=== PATIENT | male | born 1965 | race Caucasian/White ===

== ENCOUNTER 2024-09-07 13:54 | Inpatient (IN) | payer MEDICAID ==
[~2024-09-07] VITALS: Ht 172.7 cm; Wt 90.5 kg
[2024-09-07] VITALS (10 sets, daily range): BP systolic 80–141; BP diastolic 45–99; PULSE 60–89; RESP 18–19; TEMP 98–98.4; O2SAT 97–100
[2024-09-07 14:49] LABS: BASOPHILS % (AUTO) 0.7 % (0.0-2.0); EOSINOPHILS % (AUTO) 1.4 % (1.0-6.0); HEMATOCRIT 40.9 % (41-53); HEMOGLOBIN 13.3 g/dL (13.5-17.5); LYMPHOCYTES # (AUTO) 1.4 K/uL (1.0-4.8); LYMPHOCYTES % (AUTO) 14.3 % (22.0-44.0); MEAN CORPUSCULAR HGB CONC 32.5 G/dL (31.0-37.0); MEAN CORPUSCULAR VOLUME 92 fL (80-100); MONOCYTES # (AUTO) 1.4 K/uL (0.1-1.0); MONOCYTES % (AUTO) 14.3 % (2.0-9.0); NEUTROPHILS # (AUTO) 6.6 K/uL (1.8-7.7); NEUTROPHILS % (AUTO) 69.3 % (40.0-70.0); PLATELET COUNT (AUTO) 604 K/uL (150-450); RED BLOOD CELL COUNT(AUTO) 4.43 MIL/uL (4.50-5.90); RED CELL DISTRIBUTION WIDTH 14.5 % (11.5-14.5); WHITE BLOOD COUNT (AUTO) 9.6 K/uL (4.5-11.0)
[2024-09-07 14:57] LABS: ANION GAP 11 mmol/L (8-16); CARBON DIOXIDE 27 mmol/L (22-29); CHLORIDE 104 mmol/L (98-107); CREATININE 0.89 mg/dL (0.60-1.30); GLOMERULAR FILTR. RATE CALC > 60 mL/min (>60); GLUCOSE,RANDOM 119 mg/dL (70-110); POTASSIUM 3.8 mmol/L (3.5-5.1); SODIUM SERUM 142 mmol/L (136-145); UREA NITROGEN, BLOOD 10 mg/dL (7-18)
[2024-09-07] MEDS: SODIUM CHLORIDE 0.9% 1,000 ML IV ONE ×2 (15:05→18:54)
[2024-09-07 15:07] LABS: CREATINE KINASE, TOTAL ONLY 387 U/L (39-308); TROPONIN I-HIGH SENSITIVITY 5 ng/L (<76)
[2024-09-07 15:12] LABS: ALBUMIN 3.4 g/dL (3.4-5.0); BILIRUBIN,DIRECT 0.1 mg/dL (0.00-0.20); BILIRUBIN,TOTAL 0.3 mg/dL (0.1-1.0); TOTAL PROTEIN, SERUM 7.9 g/dL (6.4-8.2)
[2024-09-07] MEDS ORDERED: ZOLPIDEM TARTRATE 5 MG TABLET PO PRN (15:15)
[2024-09-07] MEDS ORDERED: MAGNESIUM HYDROXIDE SUSPENSION 30 ML UDCUP PO PRN (15:15)
[2024-09-07] MEDS: PIPERACILLIN/TAZO 3.375 GM/D5W 50 ML IV ONE (15:27)
[2024-09-07] MEDS: SODIUM CHLORIDE 0.9% 1,750 ML IV ONE (15:28)
[2024-09-07] MEDS: ACETAMINOPHEN 325 MG TABLET PO PRN (16:38)
[2024-09-07] MEDS: LORazepam 2 MG/ML VIAL IVP PRN (17:33)
[2024-09-07 17:51] LABS: GLUCOMETER DEV NAME(LOC) 6N.2B; GLUCOSE,POINT OF CARE 129 MG/DL (70-110)
[2024-09-07] MEDS ORDERED: SODIUM CHLORIDE 0.9% 500 ML IV ONE ×2 (18:11→19:42)
[2024-09-07] MEDS ORDERED: LORazepam 2 MG/ML VIAL IVP PRN (18:15)
[2024-09-07] MEDS: LevETIRAcetam 1,000 MG in DEXTROSE 5%-WATER 100 ML IV STA (18:54)
[2024-09-07] MEDS: PROPRANOLOL HCL 10 MG TABLET PO SCH (21:00)
[2024-09-08 00:58] VITALS: BP 107/59; PULSE 60; RESP 18; TEMP 98.1; O2SAT 99
[2024-09-08 03:29] LABS: APPEARANCE,URINE CLEAR (CLEAR); BILIRUBIN,URINE NEGATIVE (NEGATIVE); COLOR,URINE YELLOW (YELLOW); GLUCOSE, URINE (UA) NEGATIVE (NEGATIVE); KETONES,URINE NEGATIVE (NEGATIVE); LEUKOCYTE ESTERASE ,URINE NEGATIVE (NEGATIVE); NITRATE,URINE NEGATIVE (NEGATIVE); OCCULT BLOOD,URINE NEGATIVE (NEGATIVE); PH,URINE 6.5 (5.0-8.0); PH,URINE DRUG SCREEN 6.5 (5.0-8.0); PROTEIN,URINE 30-70 mg/dL (NEGATIVE); SPECIFIC GRAVITIY, URINE 1.025 (1.003-1.030); UROBILINOGEN,URINE <=1.0 mg/dL (<=1.0)
[2024-09-08 03:36] LABS: ALCOHOL, URINE DRUG SCREEN NEGATIVE (NEGATIVE); AMPHET/METH SCREEN,URINE NEGATIVE (NEGATIVE); BARBITURATE SCREEN, URINE NEGATIVE (NEGATIVE); BENZODIAZEPINES SCREEN,URINE NEGATIVE (NEGATIVE); CANNABINOID SCREEN,URINE POSITIVE (NEGATIVE); COCAINE SCREEN,URINE NEGATIVE (NEGATIVE); METHADONE SCREEN, URINE NEGATIVE (NEGATIVE); OPIATE SCREEN,URINE NEGATIVE (NEGATIVE); PHENCYCLIDINE SCREEN,URINE NEGATIVE (NEGATIVE)
[2024-09-08 04:30] VITALS: BP 113/68; PULSE 66; RESP 18; TEMP 98.3; O2SAT 98
[2024-09-08] MEDS: LevETIRAcetam 1,000 MG in DEXTROSE 5%-WATER 100 ML IV SCH (06:39)
[2024-09-08 09:05] VITALS: BP 98/54; PULSE 69; RESP 19; TEMP 98.1; O2SAT 99
[2024-09-08] MEDS: FAMOTIDINE 20 MG TABLET PO SCH (09:15)
[2024-09-08] MEDS: SODIUM CHLORIDE 0.9% 1,000 ML IV ONE (11:18)
[2024-09-08 12:45] VITALS: BP 104/58; PULSE 70; RESP 18; TEMP 98.2; O2SAT 99
[2024-09-08 16:17] VITALS: BP 112/53; PULSE 76; RESP 19; TEMP 98; O2SAT 98
[2024-09-08 20:16] VITALS: BP 113/68; PULSE 78; RESP 19; TEMP 98.8; O2SAT 94
[2024-09-09 00:37] VITALS: BP 124/69; PULSE 75; RESP 18; TEMP 98.4; O2SAT 96
[2024-09-09 04:29] VITALS: BP 120/73; PULSE 64; RESP 18; TEMP 98.3; O2SAT 95
[2024-09-09 07:39] VITALS: BP 115/74; PULSE 55; RESP 18; TEMP 98; O2SAT 97
[2024-09-09 11:27] VITALS: BP 105/71; PULSE 82; RESP 18; TEMP 97.6; O2SAT 98
[2024-09-09 15:13] VITALS: BP 115/66; PULSE 74; RESP 18; TEMP 97.9; O2SAT 96
[2024-09-09 19:39] VITALS: BP 125/77; PULSE 74; RESP 18; TEMP 98.2; O2SAT 98
[2024-09-09] MEDS ORDERED: SODIUM CHLORIDE 0.9% 1,000 ML ONE (20:32)
[2024-09-10 04:46] VITALS: BP 129/60; PULSE 67; RESP 18; TEMP 97.8; O2SAT 98
[2024-09-10 08:08] VITALS: BP 122/80; PULSE 70; RESP 18; TEMP 98.5; O2SAT 95
[2024-09-10 11:08] VITALS: BP 127/74; PULSE 59; RESP 18; TEMP 97.6; O2SAT 99
[2024-09-10 15:08] VITALS: BP 120/76; PULSE 97; RESP 17; TEMP 97.7; O2SAT 97
[2024-09-10] MEDS: HEPARIN SODIUM,PORCINE 5,000 UNITS/ML VIAL SQ SCH (16:06)
[2024-09-10 20:34] VITALS: BP 130/55; PULSE 72; RESP 18; TEMP 98; O2SAT 95
[2024-09-10] MEDS: LevETIRAcetam 500 MG TABLET PO SCH (20:35)
[2024-09-11] VITALS (7 sets, daily range): BP systolic 96–127; BP diastolic 50–89; PULSE 53–82; RESP 17–19; TEMP 97.9–98.2; O2SAT 94–99
[2024-09-12] VITALS (7 sets, daily range): BP systolic 99–118; BP diastolic 64–76; PULSE 57–79; RESP 17–19; TEMP 97.5–98.4; O2SAT 96–99
[2024-09-13 04:18] VITALS: BP 103/67; PULSE 54; RESP 18; TEMP 97.7; O2SAT 96
[2024-09-13 06:20] LABS: ANION GAP 6 mmol/L (8-16); CALCIUM, TOTAL 9.2 mg/dL (8.8-10.5); CARBON DIOXIDE 26 mmol/L (22-29); CHLORIDE 104 mmol/L (98-107); CREATININE 0.76 mg/dL (0.60-1.30); GLOMERULAR FILTR. RATE CALC > 60 mL/min (>60); GLUCOSE,RANDOM 96 mg/dL (70-110); POTASSIUM 4.4 mmol/L (3.5-5.1); SODIUM SERUM 136 mmol/L (136-145); UREA NITROGEN, BLOOD 22 mg/dL (7-18)
[2024-09-13 06:25] LABS: BASOPHILS % (AUTO) 0.6 % (0.0-2.0); EOSINOPHILS % (AUTO) 4.5 % (1.0-6.0); HEMOGLOBIN 13.6 g/dL (13.5-17.5); LYMPHOCYTES # (AUTO) 2.6 K/uL (1.0-4.8); LYMPHOCYTES % (AUTO) 30.1 % (22.0-44.0); MEAN CORPUSCULAR VOLUME 91 fL (80-100); MONOCYTES # (AUTO) 1.1 K/uL (0.1-1.0); MONOCYTES % (AUTO) 13.4 % (2.0-9.0); NEUTROPHILS # (AUTO) 4.4 K/uL (1.8-7.7); NEUTROPHILS % (AUTO) 51.4 % (40.0-70.0); PLATELET COUNT (AUTO) 510 K/uL (150-450); RED BLOOD CELL COUNT(AUTO) 4.52 MIL/uL (4.50-5.90); RED CELL DISTRIBUTION WIDTH 13.7 % (11.5-14.5); WHITE BLOOD COUNT (AUTO) 8.5 K/uL (4.5-11.0)
[2024-09-13 07:32] VITALS: BP 96/56; PULSE 54; RESP 18; TEMP 97.5; O2SAT 95
[2024-09-13 11:49] VITALS: BP 102/75; PULSE 58; RESP 19; TEMP 97.7; O2SAT 98
[2024-09-13 16:18] VITALS: BP 118/80; PULSE 98; RESP 18; TEMP 98.2; O2SAT 96
[2024-09-13 19:42] VITALS: BP 131/90; PULSE 82; RESP 19; TEMP 98.1; O2SAT 97
[2024-09-13 23:49] VITALS: BP 105/72; PULSE 58; RESP 18; TEMP 97.9; O2SAT 99
[2024-09-14 03:36] VITALS: BP 116/71; PULSE 61; RESP 18; TEMP 97.3; O2SAT 96
[2024-09-14 07:41] VITALS: BP 105/78; PULSE 59; RESP 18; TEMP 97.5; O2SAT 98
[2024-09-14 11:39] VITALS: BP 103/84; PULSE 59; RESP 18; TEMP 98.1; O2SAT 98
[2024-09-14 15:28] VITALS: BP 103/71; PULSE 58; RESP 18; TEMP 97.7; O2SAT 97
[2024-09-14 20:00] VITALS: BP 104/69; PULSE 71; RESP 17; TEMP 97.6; O2SAT 94
[2024-09-15] VITALS (7 sets, daily range): BP systolic 103–115; BP diastolic 66–80; PULSE 59–78; RESP 18–20; TEMP 97.3–98.4; O2SAT 95–98
[2024-09-16 00:12] VITALS: BP 107/67; PULSE 67; RESP 18; TEMP 98.2; O2SAT 98
[2024-09-16 04:43] VITALS: BP 112/81; PULSE 62; RESP 18; TEMP 97.5; O2SAT 97
[2024-09-16 07:48] VITALS: BP 129/69; PULSE 100; RESP 18; TEMP 97.7; O2SAT 97
[2024-09-16 12:12] VITALS: BP 107/78; PULSE 65; RESP 20; TEMP 97.2; O2SAT 97
[2024-09-16 17:14] VITALS: BP 112/76; PULSE 60; RESP 18; TEMP 98; O2SAT 97
== END 2024-09-16 17:30 | DRG 58 ==
LOC: EMS 13:56 → EDH 15:11 → 6S 16:30 → 5S 19:03
PROVIDERS: ADMIT Internal Medicine; ATTEND Internal Medicine
DX: G25.2 Other specified forms of tremor (principal); G25.89 Other specified extrapyramidal and movement disorders; G40.909 Epilepsy, unspecified, not intractable, without status epilepticus; Z79.899 Other long term (current) drug therapy; Z86.79 Personal history of other diseases of the circulatory system; Z87.820 Personal history of traumatic brain injury
CPT/HCPCS: 51702; 70450; 71045; 80048; 80076; 80307; 81003; 82140; 82550; 82962; 83605; 84484; 85025; 85610; 87040; 93005; 96365; 97112; 97116; 97162; 97530; 99285; J0712; J1644; J2060; J2543; J7030; J7040; J7060; 36415-L1; 36415-TC